=== PATIENT | male | born 1990 | race Caucasian/White ===

== ENCOUNTER 2019-05-21 18:36 | Emergency (ER) | payer BC, OTHER ==
[2019-05-21 18:42] VITALS: BP 130/75; PULSE 70
--- NOTE | 2019-05-21 19:15 | EDM.PDOC ---
ED HPI GENERAL MEDICAL PROBLEM - General Chief Complaint: Upper Extremity Injury/Pain Stated Complaint: crushed hand Time Seen by Provider: 05/21/19 18:41 Source of Information: Reports: Patient History Limitations: Reports: No Limitations - History of Present Illness INITIAL COMMENTS - FREE TEXT/NARRATIVE: Pt injured left hand Worse today Hit with heavy object Increased pain today Onset Date: 05/20/19 Duration: Getting Worse Location: Reports: Upper Extremity, Left Quality: Reports: Ache Severity: Mild Worsens with: Reports: Movement Context: Reports: Trauma left hand Pain Score (Numeric/FACES): 6 - Related Data Allergies Allergy/AdvReac Type Severity Reaction Status Date / Time No Known Drug Allergies Allergy Other Verified 05/21/19 18:45 Home Meds: Home Meds ALPRAZolam [Alprazolam] 0.5 mg PO DAILY PRN 05/21/19 [History] Escitalopram [Lexapro] 20 mg PO DAILY 05/21/19 [History] busPIRone [Buspar] 10 mg PO BID 05/21/19 [History] Past Medical History - Past Health History Medical/Surgical History: Denies Medical/Surgical History Social & Family History - Tobacco Use Smoking Status *Q: Current Some Day Smoker Years of Tobacco use: 1 Packs/Tins Daily: 0.2 Second Hand Smoke Exposure: Yes - Caffeine Use Caffeine Use: Reports: Energy Drinks Other Caffeine Use: 1-2 per day - Alcohol Use Days Per Week of Alcohol Use: 5 Number of Drinks Per Day: 2 Total Drinks Per Week: 10 Date of Last Drink: 05/19/19 - Recreational Drug Use Recreational Drug Use: No Review of Systems - Review of Systems Review Of Systems: See Below Musculoskeletal: Reports: Hand Pain ED EXAM, GENERAL - Physical Exam Exam: See Below Extremities: Other (Left hand with minimal swelling Mild ecchymosis Limited ROM per patient Tender) Course - Vital Signs Last Recorded V/S: Last Vital Signs Temp 97.9 F 05/21/19 18:37 Pulse 70 05/21/19 18:37 Resp 18 05/21/19 18:37 BP 130/75 05/21/19 18:37 Pulse Ox 100 05/21/19 18:37 - Orders/Labs/Meds Orders: Active Orders 24 hr Category Date Time Status Hand Comp Min 3V Lt [CR] Stat Exams 03/09/20 18:41 Taken - Re-Assessments/Exams Free Text/Narrative Re-Assessment/Exam: 05/21/19 19:13 xray: No fracture Departure - Departure Time of Disposition: 19:15 Disposition: Home, Self-Care 01 Clinical Impression: Contusion of hand, left Qualifiers: Encounter type: initial encounter Qualified Code(s): S60.222A - Contusion of left hand, initial encounter - Discharge Information *PRESCRIPTION DRUG MONITORING PROGRAM REVIEWED*: Not Applicable *COPY OF PRESCRIPTION DRUG MONITORING REPORT IN PATIENT [facility]: Not Applicable Instructions: Hand Contusion, Hand Contusion, [id number] Additional Instructions: Ice as needed Tylenol or Motrin as needed Follow up in clinic Sepsis Event Note - Evaluation Sepsis Screening Result: No Definite Risk - Focused Exam Vital Signs: Vital Signs Temp Pulse Resp BP Pulse Ox 05/21/19 18:37 97.9 F 70 18 130/75 100 Date Exam was Performed: 05/21/19 Time Exam was Performed: 19:11 - My Orders Last 24 Hours: My Active Orders 05/21/19 18:41 Hand Comp Min 3V Lt [CR] Stat - Assessment/Plan Last 24 Hours: My Active Orders 05/21/19 18:41 Hand Comp Min 3V Lt [CR] Stat
== END 2019-05-21 19:40 | disposition home or self-care (01) ==
LOC: LL.ED 18:36
DX: S60.222A Contusion of left hand, initial encounter (principal); F17.210 Nicotine dependence, cigarettes, uncomplicated; Z79.899 Other long term (current) drug therapy; W22.8XXA Striking against or struck by other objects, initial encounter
CPT/HCPCS: 73130-LT; 99282; 99283-25

== ENCOUNTER 2021-09-03 19:34 | Emergency (ER) | payer OTHER, BC ==
[2021-09-03] MEDS ORDERED: Ketorolac 30 MG/ML SDV IM ONE (19:37)
[2021-09-03] MEDS ORDERED: Ketorolac 30 MG/ML SDV IVPUSH ONE (19:43)
[2021-09-03] MEDS ORDERED: Orphenadrine 100 MG Tab.ER PO SCH (20:28)
[2021-09-03 22:21] VITALS: BP 112/64; PULSE 64
[2021-09-04] MEDS ORDERED: Orphenadrine 100 MG Tab.ER PO SCH (20:00)
== END 2021-09-03 20:50 | disposition home or self-care (01) ==
LOC: LL.ED 19:34
DX: S80.12XA Contusion of left lower leg, initial encounter (principal); V89.2XXA Person injured in unspecified motor-vehicle accident, traffic, initial encounter; Y92.410 Unspecified street and highway as the place of occurrence of the external cause
CPT/HCPCS: 96374; 99283; 99283-25; A9270-GY; J1885